=== PATIENT | male | born 1995 | race African-American/Black ===

== ENCOUNTER 2017-06-21 22:39 | Emergency (ER) | payer SELFPAY ==
[~2017-06-21] VITALS: Ht 182.9 cm; Wt 116.4 kg
[~2017-06-21 22:39] MED LIST: BACT2OIN TOP; SULF1TAB47 PO; Z.0.NO CURRENT MEDS
[2017-06-21 22:41] VITALS: BP 122/86; PULSE 71; RESP 14; TEMP 97.8; O2SAT 98
[2017-06-21] MEDS ORDERED: DICY10 PO (23:06)
[2017-06-21] MEDS ORDERED: ZOFR4TAB3 SL (23:06)
--- NOTE | 2017-06-21 23:06 | PD ---
HPI Chief Complaint: GI Complaint Time Seen by Provider: 22:57 Travel History International Travel<30 days: No Contact w/Intl Traveler<30days: No Traveled to known affect area: No History of Present Illness HPI This is a 22-year-old male who presents to the emergency department having not felt well ever since he ate [employer] 2 days ago. He says his stomach doesn't feel right immediately after he eats. He denies any abdominal pain. He feels a little bit nauseous and he threw up twice today. He's had some loose stool but no jef diarrhea. He denies any fevers or chills. He has no history of abdominal surgeries. Currently he is completely pain-free. [facility] Past Medical History Medical History: Denies Significant Hx Diminished Hearing: No Immunizations Current: Yes Tetanus Vaccination: Unknown Influenza Vaccination: No Past Surgical History Surgical History: No Previous Surgery Social History Alcohol Use: Yes (OCC) Tobacco Use: No (QUIT 01/08) Substance Use: Yes (marijuana) Allergies-Medications (Allergen,Severity, Reaction): Coded Allergies: No Known Allergies (Verified , 06/21/17) Reported Meds & Prescriptions Reported Meds & Active Scripts Active No Active Prescriptions or Reported Medications Review of Systems Except as stated in HPI: all other systems reviewed are Neg Physical Exam Narrative GENERAL:Well appearing, no acute distress SKIN: Focused skin assessment warm and dry. HEAD: Atraumatic. Normocephalic. EYES: Pupils equal and round. No injection or drainage. ENT: Moist mucous membranes NECK: Trachea midline. CARDIOVASCULAR: Regular rate and rhythm. No murmur appreciated. RESPIRATORY: Clear to auscultation. Breath sounds equal bilaterally. GASTROINTESTINAL: Abdomen soft, non-tender, nondistended. MUSCULOSKELETAL: No obvious deformities. NEUROLOGICAL: Awake and alert. No obvious cranial nerve deficits. Moving all extremities. PSYCHIATRIC: Appropriate mood and affect; insight and judgment normal. Data Data Last Documented VS Vital Signs Date Time Temp Pulse Resp B/P (MAP) Pulse Ox O2 Delivery O2 Flow Rate FiO2 06/21/17 22:41 97.8 71 14 122/86 (98) 98 MDM Medical Decision Making Medical Screen Exam Complete: Yes Emergency Medical Condition: Yes Differential Diagnosis Gastroenteritis, food poisoning, appendicitis, cholecystitis Narrative Course This is a 22-year-old male who presents to the emergency department with intermittent nausea, vomiting and diarrhea ever since he ate [employer]. He has a completely benign exam and has no abdominal pain. He appears well-hydrated. Vital signs are reassuring. I don't think he requires any additional testing at this time. He was advised to return to the emergency department if he develops abdominal pain or fever. Patient will be discharged home with symptomatic management for likely food poisoning. Diagnosis Primary Impression: Food poisoning Qualified Codes: T62.94XA - Toxic effect of unspecified noxious substance eaten as food, undetermined, initial encounter Patient Instructions: General Instructions Additional Instructions: If you develop lightheadedness, dizziness, persistent vomiting, inability to eat , or severe abdominal pain return to the emergency department. Followup with your primary care physician in 2-3 days if your symptoms have not resolved. Wash your hands aggressively after using the restroom as to not spread your illness to others. Do not return to work until your symptoms have resolved. Take Zofran as needed for nausea. Med/Other Pt SpecificInfo: Prescription(s) given Scripts Dicyclomine (Bentyl) 10 Mg Cap 10 MG PO QID for Bowel Management, #14 CAP 0 Refills Prov: Gillian Bates MD 06/21/17 Ondansetron Odt (Zofran Odt) 4 Mg Tab 4 MG SL Q6HR Y for Nausea/Vomiting, #10 TAB 0 Refills Prov: Gillian Bates MD 06/21/17 Disposition: 01 DISCHARGE HOME Condition: Stable Gillian Bates MD Jun 21, 2017 23:06
== END 2017-06-21 23:34 | disposition home or self-care (01) ==
LOC: PHED 22:39
DX: T62.94XA Toxic effect of unspecified noxious substance eaten as food, undetermined, initial encounter (principal)
CPT/HCPCS: 99284